=== PATIENT | female | born 1985 | race African-American/Black ===

== ENCOUNTER 2017-09-18 15:15 | Inpatient (IN) ==
[2017-09-18] MEDS ORDERED: ONDANSETRON 4 MG/2 ML VIAL IV PRN (22:38)
[2017-09-18] MEDS ORDERED: AZITHROMYCIN 250 MG TABLET PO SCH (22:38)
[2017-09-18 23:14] LABS: Basophils % 0.2 % (0.0-0.8); Eosinophils % 0.5 % (0.00-10.9); Mean Corpuscular Volume 76.7 FL (87-102); NRBC # 0.11 10*3/uL
[2017-09-18] MEDS ORDERED: INFLUENZA VIRUS VACCINE 0.5 ML SYRINGE IM ONE (23:22)
[2017-09-18 23:38] LABS: Hematocrit 35.8 VOL% (35.7-47.0); Immature Granulocytes % 1.6 %; Immature Granulocytes Absolute 0.14 #; Lymphocytes # 2.9 10*3/uL (1.4-4.0); Lymphocytes % 32.5 % (21.3-54.2); Mean Corpuscular HGB Conc 26.3 GM/DL (32-36); Mean Corpuscular Hemoglobin 20 PG (27-34); Mean Platelet Volume 8.9 FL (9.6-12.0); Monocytes # 0.6 10*3/uL (0.11-0.8); Monocytes % 7.2 % (1.7-12.7); Neutrophils # 5.1 10*3/uL (1.4-7.4); Platelet Count 372 T/CUMM (130-400); Red Blood Count 4.67 MC/CUMM (3.8-5.5); Red Cell Distribution Width 20.2 % (9.3-17.3); White Blood Count 8.8 T/CUMM (4-12)
[2017-09-18 23:39] LABS: Hemoglobin 9.5 GM/DL (12.0-16.0)
[2017-09-18 23:44] LABS: Albumin 2.6 G/DL (3.4-5.0); Bilirubin,Direct 0.21 MG/DL (0.0-0.20); Bilirubin,Indirect 0.3 MG/DL (0.0-1.0); Bilirubin,Total 0.5 MG/DL (0.2-1.0); Free T4 (Free Thyroxine) 1.29 NG/DL (0.76-1.46); Total Protein 7.4 G/DL (6.4-8.3)
[2017-09-18 23:51] LABS: Calcium 8.8 MG/DL (8.5-10.1); Magnesium 1.9 MG/DL (1.8-2.4); Osmolality,Calculated 277.5 MOS/KG (273-304); Potassium 4.1 MMOL/L (3.5-5.1); Risk Ratio 2.43; Thyroid Stimulating Hormone 2.16 uIU/ml (0.358-3.74); VLDL CHOLESTEROL 12.8 MG/DL
[2017-09-19 00:30] LABS: Anisocytosis 1+; Hypochromasia 1+
[2017-09-19 00:31] LABS: Platelet Estimate Normal; Polychromasia Few
[2017-09-19] MEDS: CARVEDILOL 3.125 MG TABLET PO SCH ×3 (00:39→20:57)
[2017-09-19] MEDS: DOCUSATE SODIUM 100 MG CAPSULE PO SCH ×3 (00:39→20:57)
[2017-09-19] MEDS: ENOXAPARIN 40 MG/0.4 ML SYRINGE SUBCUT SCH (04:47)
[2017-09-19] MEDS ORDERED: MIDAZOLAM 10 MG/2 ML VIAL ONE (07:03)
[2017-09-19] MEDS ORDERED: fentaNYL 100 MCG/2 ML VIAL ONE (07:05)
[2017-09-19] MEDS ORDERED: PROPOFOL 1,000 MG/100 ML BOTTLE IV ONE (07:06)
[2017-09-19] MEDS ORDERED: DILTIAZEM 50 MG/10 ML VIAL IV ONE ×2 (07:06→07:45)
[2017-09-19] MEDS ORDERED: DILTIAZEM 100 MG VIAL.ADD IV ONE (07:10)
[2017-09-19] MEDS ORDERED: SODIUM CHLORIDE 0.9% 100 ML IV ONE (07:11)
[2017-09-19] MEDS ORDERED: HEPARIN/NACL 0.9% 2 UNITS/ML 500 ML IV ONE ×2 (07:16→07:19)
[2017-09-19] MEDS ORDERED: MIDAZOLAM 2 MG/2 ML VIAL IV ONE (07:39)
[2017-09-19] MEDS ORDERED: fentaNYL 100 MCG/2 ML VIAL IV ONE (07:40)
[2017-09-19] MEDS ORDERED: DILTIAZEM INJ 100 MG in SODIUM CHLORIDE 0.9% 100 ML IV SCH (08:00)
[2017-09-19] MEDS: PROPOFOL 1,000 MG/100 ML BOTTLE IV SCH ×6 (08:08→21:15)
[2017-09-19 08:20] LABS: ABG HCO3 33.8 MMOL/L (20-26); ABG PH 7.293 (7.35-7.45); ABG TCO2 36.5 MMOL/L (23-27)
[2017-09-19] MEDS: FUROSEMIDE 40 MG/4 ML VIAL IV SCH ×2 (08:20→17:16)
[2017-09-19 08:22] LABS: ABG PCO2 80.8 MM HG (35-48)
[2017-09-19 08:25] LABS: Basophils % 0.3 % (0.0-0.8); Eosinophils % 0.4 % (0.00-10.9); Hematocrit 37.6 VOL% (35.7-47.0); Hemoglobin 9.8 GM/DL (12.0-16.0); Immature Granulocytes % 2.1 %; Immature Granulocytes Absolute 0.24 #; Lymphocytes # 5.4 10*3/uL (1.4-4.0); Mean Corpuscular HGB Conc 26.1 GM/DL (32-36); Mean Corpuscular Hemoglobin 21 PG (27-34); Mean Corpuscular Volume 79.2 FL (87-102); Mean Platelet Volume 10.1 FL (9.6-12.0); Monocytes # 0.7 10*3/uL (0.11-0.8); Monocytes % 5.8 % (1.7-12.7); NRBC # 0.23 10*3/uL; Neutrophils # 5.1 10*3/uL (1.4-7.4); Neutrophils % 44.4 % (38.7-73.9); Platelet Count 379 T/CUMM (130-400); Red Blood Count 4.75 MC/CUMM (3.8-5.5); Red Cell Distribution Width 20.8 % (9.3-17.3); White Blood Count 11.4 T/CUMM (4-12)
[2017-09-19 08:32] LABS: Albumin 2.7 G/DL (3.4-5.0); Bilirubin,Total 0.5 MG/DL (0.2-1.0); Calcium 8.7 MG/DL (8.5-10.1); Osmolality,Calculated 276.7 MOS/KG (273-304); Potassium 4.5 MMOL/L (3.5-5.1); Total Protein 7.8 G/DL (6.4-8.3); Troponin I Only 0.02 NG/ML (0.00-0.045)
[2017-09-19] MEDS ORDERED: LIDOCAINE 2% 20 ML VIAL RESP TX ONE (08:37)
[2017-09-19] MEDS ORDERED: LIDOCAINE 1% 20 ML VIAL MISC INJ ONE (08:37)
[2017-09-19 08:45] LABS: Risk Ratio 2.37; VLDL CHOLESTEROL 14.2 MG/DL
[2017-09-19] MEDS ORDERED: LISINOPRIL 10 MG TABLET PO SCH (09:00)
[2017-09-19 09:22] LABS: Calcium 8.4 MG/DL (8.5-10.1); Magnesium 1.8 MG/DL (1.8-2.4); Osmolality,Calculated 277.5 MOS/KG (273-304); Potassium 4.4 MMOL/L (3.5-5.1)
[2017-09-19 09:28] LABS: Hypochromasia 2+; Microcytosis 1+; Polychromasia Slight
[2017-09-19 10:40] LABS: Allen Test Positive; Pt O2 Delivery Device Ventilator
[2017-09-19 10:41] LABS: ABG Base Excess 15.4 MMOL/L (-2.5-2.5); ABG HCO3 42.8 MMOL/L (20-26); ABG Oxygen Saturation 95.1 % (95-100); ABG PH 7.386 (7.35-7.45)
[2017-09-19] MEDS: PANTOPRAZOLE 40 MG TABLET PO SCH (11:30)
[2017-09-19] MEDS: PIPERACILLIN/TAZOBACTAM 3,375 MG in SODIUM CHLORIDE 0.9% 100 ML IV SCH ×2 (11:30→17:16)
[2017-09-19 11:53] LABS: Barbiturates Screen,Urine Negative (Negative); Benzodiazepines Screen,Urine Positive (Negative); Cannabinoid Screen,Urine Negative (Negative); Opiate Screen,Urine Negative (Negative); Phencyclidine Screen,Urine Negative (Negative)
[2017-09-19] MEDS: DILTIAZEM 30 MG TABLET PO SCH ×3 (12:15→20:57)
[2017-09-20] MEDS: PIPERACILLIN/TAZOBACTAM 3,375 MG in SODIUM CHLORIDE 0.9% 100 ML IV SCH ×3 (01:51→18:44)
[2017-09-20] MEDS: PROPOFOL 1,000 MG/100 ML BOTTLE IV SCH ×10 (02:34→23:30)
[2017-09-20 02:36] LABS: ABG Base Excess 17.8 MMOL/L (-2.5-2.5); ABG HCO3 42.3 MMOL/L (20-26); ABG Oxygen Saturation 98.7 % (95-100); ABG PH 7.545 (7.35-7.45); ABG PO2 120.9 MM HG (80-95); ABG TCO2 43.8 MMOL/L (23-27); Pt O2 Delivery Device Ventilator
[2017-09-20 03:37] LABS: Calcium 8.6 MG/DL (8.5-10.1); Magnesium 1.8 MG/DL (1.8-2.4); Osmolality,Calculated 279.3 MOS/KG (273-304); Potassium 3.6 MMOL/L (3.5-5.1)
[2017-09-20 03:52] LABS: Basophils % 0.2 % (0.0-0.8); Eosinophils # 0.1 10*3/uL (0.0-0.87); Eosinophils % 0.8 % (0.00-10.9); Hematocrit 32.5 VOL% (35.7-47.0); Hemoglobin 8.9 GM/DL (12.0-16.0); Immature Granulocytes % 0.5 %; Immature Granulocytes Absolute 0.05 #; Lymphocytes # 1.9 10*3/uL (1.4-4.0); Mean Corpuscular HGB Conc 27.4 GM/DL (32-36); Mean Corpuscular Hemoglobin 20 PG (27-34); Mean Corpuscular Volume 73.4 FL (87-102); Mean Platelet Volume 9.4 FL (9.6-12.0); Monocytes # 0.7 10*3/uL (0.11-0.8); Monocytes % 6.6 % (1.7-12.7); NRBC # 0.02 10*3/uL; Neutrophils # 7.8 10*3/uL (1.4-7.4); Neutrophils % 73.9 % (38.7-73.9); Platelet Count 298 T/CUMM (130-400); Red Blood Count 4.43 MC/CUMM (3.8-5.5); White Blood Count 10.6 T/CUMM (4-12)
[2017-09-20 04:05] LABS: Anisocytosis 2+; Hypochromasia 3+; Platelet Estimate Normal; Polychromasia Slight
[2017-09-20] MEDS: ENOXAPARIN 40 MG/0.4 ML SYRINGE SUBCUT SCH (05:25)
[2017-09-20] MEDS ORDERED: AMINOPHYLLINE 250 MG in SODIUM CHLORIDE 0.9% 100 ML IV ONE (07:00)
[2017-09-20] MEDS: DILTIAZEM 30 MG TABLET PO SCH ×4 (11:25→21:51)
[2017-09-20] MEDS: DOCUSATE SODIUM 100 MG CAPSULE PO SCH ×2 (11:25→21:51)
[2017-09-20] MEDS: CARVEDILOL 3.125 MG TABLET PO SCH ×2 (11:25→21:51)
[2017-09-20] MEDS: FUROSEMIDE 40 MG/4 ML VIAL IV SCH ×2 (11:26→16:04)
[2017-09-20] MEDS: PANTOPRAZOLE 40 MG VIAL IV SCH (11:26)
[2017-09-20] MEDS ORDERED: ENOXAPARIN 100 MG/ML SYRINGE SUBCUT ONE (11:37)
[2017-09-20] MEDS: PANTOPRAZOLE 40 MG TABLET PO SCH (11:42)
[2017-09-20] MEDS: AMINOPHYLLINE 1,000 MG in SODIUM CHLORIDE 0.9% 460 ML IV SCH (11:45)
[2017-09-20] MEDS: ASPIRIN CHEW 81 MG TABLET PO SCH (11:47)
[2017-09-20] MEDS ORDERED: GLUCAGON 1 MG VIAL IM PRN (12:22)
[2017-09-20] MEDS ORDERED: DEXTROSE 50% 25 GM/50 ML VIAL IV PRN (12:22)
[2017-09-20] MEDS: INSULIN REGULAR 100 UNIT/ML SUBCUT SCH (18:44)
[2017-09-20] MEDS ORDERED: ENOXAPARIN 150 MG/ML SYRINGE SUBCUT SCH (21:00)
[2017-09-21] MEDS ORDERED: SODIUM CHLORIDE 0.9% 500 ML IV ONE (00:40)
[2017-09-21] MEDS: INSULIN REGULAR 100 UNIT/ML SUBCUT SCH ×4 (00:51→18:07)
[2017-09-21] MEDS: PROPOFOL 1,000 MG/100 ML BOTTLE IV SCH ×4 (02:00→21:00)
[2017-09-21] MEDS: PIPERACILLIN/TAZOBACTAM 3,375 MG in SODIUM CHLORIDE 0.9% 100 ML IV SCH ×3 (03:17→18:07)
[2017-09-21 03:20] LABS: ABG Base Excess 12.4 MMOL/L (-2.5-2.5); ABG HCO3 39.8 MMOL/L (20-26); ABG Oxygen Saturation 94.5 % (95-100); ABG PH 7.371 (7.35-7.45); ABG PO2 77.2 MM HG (80-95); ABG TCO2 41.9 MMOL/L (23-27); Allen Test Positive; Pt O2 Delivery Device Ventilator
[2017-09-21 03:25] LABS: ABG PCO2 70.2 MM HG (35-48)
[2017-09-21] MEDS: AMINOPHYLLINE 1,000 MG in SODIUM CHLORIDE 0.9% 460 ML IV SCH ×3 (04:14→21:29)
[2017-09-21 04:17] LABS: Calcium 8.3 MG/DL (8.5-10.1); Magnesium 2.1 MG/DL (1.8-2.4); Osmolality,Calculated 285.1 MOS/KG (273-304); Potassium 3.4 MMOL/L (3.5-5.1)
[2017-09-21 05:10] LABS: Phosphorous 5.7 MG/DL (2.5-4.9); Prealbumin 8.4 MG/DL (20-40)
[2017-09-21 05:25] LABS: Red Blood Count 4.46 MC/CUMM (3.8-5.5); White Blood Count 9.4 T/CUMM (4-12)
[2017-09-21 05:26] LABS: Basophils % 0.2 % (0.0-0.8); Eosinophils # 0.3 10*3/uL (0.0-0.87); Eosinophils % 2.9 % (0.00-10.9); Immature Granulocytes % 0.4 %; Immature Granulocytes Absolute 0.04 #; Lymphocytes # 1.8 10*3/uL (1.4-4.0); Lymphocytes % 19.2 % (21.3-54.2); Mean Corpuscular HGB Conc 26.5 GM/DL (32-36); Mean Corpuscular Hemoglobin 20 PG (27-34); Mean Corpuscular Volume 76.2 FL (87-102); Mean Platelet Volume 9.7 FL (9.6-12.0); Monocytes # 0.8 10*3/uL (0.11-0.8); Monocytes % 8.9 % (1.7-12.7); Neutrophils # 6.4 10*3/uL (1.4-7.4); Neutrophils % 68.4 % (38.7-73.9); Platelet Count 326 T/CUMM (130-400); Red Cell Distribution Width 21.5 % (9.3-17.3)
[2017-09-21 06:04] LABS: Hypochromasia 2+; Microcytosis 1+; Target Cells Few
[2017-09-21 06:05] LABS: Anisocytosis 1+; Ovalocytes Slight; Platelet Estimate Normal; Tear Drop Cells Slight
[2017-09-21] MEDS: DEXMEDETOMIDINE 200 MCG in SODIUM CHLORIDE 0.9% 48 ML IV SCH ×2 (08:23→14:21)
[2017-09-21] MEDS: FUROSEMIDE 40 MG/4 ML VIAL IV SCH ×2 (08:23→17:06)
[2017-09-21] MEDS: ENOXAPARIN 40 MG/0.4 ML SYRINGE SUBCUT SCH (09:44)
[2017-09-21] MEDS: PANTOPRAZOLE 40 MG VIAL IV SCH (09:45)
[2017-09-21] MEDS: CARVEDILOL 3.125 MG TABLET PO SCH (09:45)
[2017-09-21] MEDS: ASPIRIN CHEW 81 MG TABLET PO SCH (09:45)
[2017-09-21] MEDS: DILTIAZEM 30 MG TABLET PO SCH ×4 (09:45→21:00)
[2017-09-21] MEDS: DOCUSATE SODIUM 100 MG CAPSULE PO SCH ×2 (09:46→21:29)
[2017-09-21] MEDS: DESITIN 4OZ/NYSTATIN 15 GRAM MIXTURE PASTE TOP SCH (12:15)
[2017-09-22] MEDS: INSULIN REGULAR 100 UNIT/ML SUBCUT SCH ×4 (00:01→18:15)
[2017-09-22] MEDS: CARVEDILOL 3.125 MG TABLET PO SCH ×2 (01:18→10:05)
[2017-09-22] MEDS: PROPOFOL 1,000 MG/100 ML BOTTLE IV SCH (01:26)
[2017-09-22] MEDS: PIPERACILLIN/TAZOBACTAM 3,375 MG in SODIUM CHLORIDE 0.9% 100 ML IV SCH ×3 (02:32→17:03)
[2017-09-22] MEDS: DESITIN 4OZ/NYSTATIN 15 GRAM MIXTURE PASTE TOP SCH ×2 (03:00→10:49)
[2017-09-22 03:42] LABS: ABG Base Excess 9.6 MMOL/L (-2.5-2.5); ABG HCO3 35.5 MMOL/L (20-26); ABG Oxygen Saturation 98.5 % (95-100); ABG PCO2 55.7 MM HG (35-48); ABG PH 7.422 (7.35-7.45); ABG PO2 117.4 MM HG (80-95); ABG TCO2 37.2 MMOL/L (23-27); Pt O2 Delivery Device Ventilator
[2017-09-22 03:44] LABS: Calcium 8.3 MG/DL (8.5-10.1); Osmolality,Calculated 285.1 MOS/KG (273-304); Potassium 3.4 MMOL/L (3.5-5.1)
[2017-09-22 04:00] LABS: Basophils % 0.1 % (0.0-0.8); Eosinophils # 0.3 10*3/uL (0.0-0.87); Eosinophils % 3.3 % (0.00-10.9); Hematocrit 35.3 VOL% (35.7-47.0); Hemoglobin 9.2 GM/DL (12.0-16.0); Immature Granulocytes % 0.4 %; Immature Granulocytes Absolute 0.04 #; Lymphocytes # 2.3 10*3/uL (1.4-4.0); Lymphocytes % 23.5 % (21.3-54.2); Mean Corpuscular HGB Conc 26.1 GM/DL (32-36); Mean Corpuscular Hemoglobin 20 PG (27-34); Mean Corpuscular Volume 77.6 FL (87-102); Mean Platelet Volume 9.5 FL (9.6-12.0); Monocytes # 0.9 10*3/uL (0.11-0.8); Monocytes % 9.2 % (1.7-12.7); NRBC # 0.02 10*3/uL; Neutrophils # 6.2 10*3/uL (1.4-7.4); Neutrophils % 63.5 % (38.7-73.9); Platelet Count 303 T/CUMM (130-400); Red Blood Count 4.55 MC/CUMM (3.8-5.5); Red Cell Distribution Width 21.6 % (9.3-17.3); White Blood Count 9.8 T/CUMM (4-12)
[2017-09-22 06:31] LABS: Giant Platelets Few; Hypochromasia 1+; Microcytosis 1+; Platelet Estimate Adequate
[2017-09-22] MEDS: FUROSEMIDE 40 MG/4 ML VIAL IV SCH ×2 (09:55→17:03)
[2017-09-22] MEDS: PANTOPRAZOLE 40 MG VIAL IV SCH (10:03)
[2017-09-22] MEDS: DOCUSATE SODIUM 100 MG CAPSULE PO SCH ×2 (10:05→22:15)
[2017-09-22] MEDS: DILTIAZEM 30 MG TABLET PO SCH ×3 (10:05→17:03)
[2017-09-22] MEDS: ASPIRIN CHEW 81 MG TABLET PO SCH (10:05)
[2017-09-22] MEDS: ENOXAPARIN 40 MG/0.4 ML SYRINGE SUBCUT SCH (10:06)
[2017-09-22] MEDS: MULTIVITAMIN LIQUID (CENTRUM) 60 ML BOTTLE PER TUBE SCH (10:06)
[2017-09-22] MEDS: AMINOPHYLLINE 1,000 MG in SODIUM CHLORIDE 0.9% 460 ML IV SCH (14:44)
[2017-09-23] MEDS: PIPERACILLIN/TAZOBACTAM 3,375 MG in SODIUM CHLORIDE 0.9% 100 ML IV SCH ×3 (01:59→19:26)
[2017-09-23] MEDS: DESITIN 4OZ/NYSTATIN 15 GRAM MIXTURE PASTE TOP SCH ×3 (01:59→21:13)
[2017-09-23 03:48] LABS: Allen Test Positive; Pt O2 Delivery Device Ventilator
[2017-09-23 03:49] LABS: ABG Base Excess 5.1 MMOL/L (-2.5-2.5); ABG HCO3 32.2 MMOL/L (20-26); ABG Oxygen Saturation 95.3 % (95-100); ABG PCO2 61.5 MM HG (35-48); ABG PH 7.337 (7.35-7.45); ABG PO2 74.7 MM HG (80-95); ABG TCO2 34.1 MMOL/L (23-27)
[2017-09-23 04:37] LABS: Basophils % 0.2 % (0.0-0.8); Eosinophils # 0.3 10*3/uL (0.0-0.87); Eosinophils % 2.9 % (0.00-10.9); Hemoglobin 9.4 GM/DL (12.0-16.0); Immature Granulocytes % 0.9 %; Lymphocytes # 1.9 10*3/uL (1.4-4.0); Lymphocytes % 16.7 % (21.3-54.2); Mean Corpuscular HGB Conc 25.9 GM/DL (32-36); Mean Corpuscular Hemoglobin 20 PG (27-34); Mean Corpuscular Volume 78.2 FL (87-102); Mean Platelet Volume 9.4 FL (9.6-12.0); Monocytes % 9.1 % (1.7-12.7); Neutrophils # 7.9 10*3/uL (1.4-7.4); Neutrophils % 70.2 % (38.7-73.9); Platelet Count 307 T/CUMM (130-400); Red Blood Count 4.64 MC/CUMM (3.8-5.5); Red Cell Distribution Width 21.3 % (9.3-17.3); White Blood Count 11.3 T/CUMM (4-12)
[2017-09-23 04:48] LABS: Calcium 8.5 MG/DL (8.5-10.1); Osmolality,Calculated 278.7 MOS/KG (273-304); Potassium 3.8 MMOL/L (3.5-5.1)
[2017-09-23] MEDS: DILTIAZEM 30 MG TABLET PO SCH ×5 (04:53→21:13)
[2017-09-23] MEDS: CARVEDILOL 3.125 MG TABLET PO SCH ×2 (04:53→08:36)
[2017-09-23] MEDS: PROPOFOL 1,000 MG/100 ML BOTTLE IV SCH ×2 (04:54→19:25)
[2017-09-23] MEDS: INSULIN REGULAR 100 UNIT/ML SUBCUT SCH ×4 (04:54→19:24)
[2017-09-23 04:57] LABS: Ferritin 47.4 ng/ml (8-252)
[2017-09-23 05:19] LABS: Hematocrit 36.3 VOL% (35.7-47.0)
[2017-09-23 05:24] LABS: Platelet Estimate Normal
[2017-09-23 05:25] LABS: Anisocytosis 2+; Hypochromasia 2+; Macrocytosis 1+; Microcytosis 1+; Target Cells 2+
[2017-09-23] MEDS: DOCUSATE SODIUM 100 MG CAPSULE PO SCH ×2 (08:36→21:13)
[2017-09-23] MEDS: ASPIRIN CHEW 81 MG TABLET PO SCH (08:36)
[2017-09-23] MEDS: ENOXAPARIN 40 MG/0.4 ML SYRINGE SUBCUT SCH (08:37)
[2017-09-23] MEDS: AMINOPHYLLINE 1,000 MG in SODIUM CHLORIDE 0.9% 460 ML IV SCH (08:37)
[2017-09-23] MEDS: PANTOPRAZOLE 40 MG VIAL IV SCH (08:40)
[2017-09-23] MEDS: FUROSEMIDE 40 MG/4 ML VIAL IV SCH (08:41)
[2017-09-23] MEDS: MULTIVITAMIN LIQUID (CENTRUM) 60 ML BOTTLE PER TUBE SCH (08:45)
[2017-09-23] MEDS ORDERED: CARVEDILOL 3.125 MG TABLET PO ONE (09:38)
[2017-09-23] MEDS: CARVEDILOL 6.25 MG TABLET PO SCH ×2 (09:39→21:13)
[2017-09-24] MEDS: AMINOPHYLLINE 1,000 MG in SODIUM CHLORIDE 0.9% 460 ML IV SCH ×2 (00:05→16:21)
[2017-09-24] MEDS: INSULIN REGULAR 100 UNIT/ML SUBCUT SCH ×4 (01:13→19:07)
[2017-09-24] MEDS: PIPERACILLIN/TAZOBACTAM 3,375 MG in SODIUM CHLORIDE 0.9% 100 ML IV SCH ×3 (02:24→19:12)
[2017-09-24 03:47] LABS: Allen Test Positive
[2017-09-24 03:49] LABS: ABG Base Excess 2.9 MMOL/L (-2.5-2.5); ABG HCO3 26.9 MMOL/L (20-26); ABG Oxygen Saturation 91.8 % (95-100); ABG PH 7.227 (7.35-7.45); ABG PO2 67.6 MM HG (80-95); ABG TCO2 30.6 MMOL/L (23-27)
[2017-09-24 03:51] LABS: ABG PCO2 78.6 MM HG (35-48)
[2017-09-24 04:21] LABS: Basophils % 0.3 % (0.0-0.8); Eosinophils # 0.1 10*3/uL (0.0-0.87); Eosinophils % 0.5 % (0.00-10.9); Hematocrit 37.7 VOL% (35.7-47.0); Hemoglobin 9.6 GM/DL (12.0-16.0); Immature Granulocytes % 4.8 %; Immature Granulocytes Absolute 0.74 #; Lymphocytes # 2.2 10*3/uL (1.4-4.0); Mean Corpuscular HGB Conc 25.5 GM/DL (32-36); Mean Corpuscular Hemoglobin 20 PG (27-34); Mean Corpuscular Volume 79.5 FL (87-102); Mean Platelet Volume 9.4 FL (9.6-12.0); Monocytes # 1.2 10*3/uL (0.11-0.8); Monocytes % 7.5 % (1.7-12.7); NRBC # 0.05 10*3/uL; Neutrophils # 11.4 10*3/uL (1.4-7.4); Neutrophils % 72.9 % (38.7-73.9); Platelet Count 305 T/CUMM (130-400); Red Blood Count 4.74 MC/CUMM (3.8-5.5); Red Cell Distribution Width 20.3 % (9.3-17.3); White Blood Count 15.6 T/CUMM (4-12)
[2017-09-24 04:25] LABS: Calcium 9.1 MG/DL (8.5-10.1); Osmolality,Calculated 270.1 MOS/KG (273-304); Potassium 4.4 MMOL/L (3.5-5.1)
[2017-09-24 04:33] LABS: Band Neutrophils 2 % (0-10); Eosinophils 3 % (0-10); Lymphocytes 14 % (20-55); Metamyelocytes 1 %; Myelocytes 1 %; Segmented Neutrophils 75 % (50-85)
[2017-09-24 04:34] LABS: Hypochromasia 2+; Platelet Estimate Normal; Polychromasia Few
[2017-09-24 04:35] LABS: Stomatocytes Few; Target Cells Few
[2017-09-24 04:37] LABS: Total Cells Counted 100
[2017-09-24 04:38] LABS: Ovalocytes 1+
[2017-09-24 04:46] LABS: Magnesium 2.1 MG/DL (1.8-2.4); Phosphorous 3.3 MG/DL (2.5-4.9); Prealbumin 9.5 MG/DL (20-40)
[2017-09-24] MEDS: DOCUSATE SODIUM 100 MG CAPSULE PO SCH ×2 (08:07→22:05)
[2017-09-24] MEDS: ENOXAPARIN 40 MG/0.4 ML SYRINGE SUBCUT SCH (08:07)
[2017-09-24] MEDS: DILTIAZEM 30 MG TABLET PO SCH (08:07)
[2017-09-24] MEDS: ASPIRIN CHEW 81 MG TABLET PO SCH (08:08)
[2017-09-24] MEDS: MULTIVITAMIN LIQUID (CENTRUM) 60 ML BOTTLE PER TUBE SCH (08:08)
[2017-09-24] MEDS: DESITIN 4OZ/NYSTATIN 15 GRAM MIXTURE PASTE TOP SCH ×2 (08:08→22:01)
[2017-09-24] MEDS: CARVEDILOL 6.25 MG TABLET PO SCH (08:08)
[2017-09-24] MEDS: PANTOPRAZOLE 40 MG VIAL IV SCH (08:12)
[2017-09-24] MEDS: VANCOMYCIN INJ 2,000 MG in SODIUM CHLORIDE 0.9% 500 ML IV SCH ×2 (10:54→19:11)
[2017-09-24] MEDS ORDERED: DILTIAZEM 90 MG TABLET PO ONE (12:30)
[2017-09-24] MEDS ORDERED: SODIUM CHLORIDE 0.45% 1,000 ML IV SCH (12:30)
[2017-09-24 18:35] LABS: ABG Base Excess 4.2 MMOL/L (-2.5-2.5); ABG HCO3 27.9 MMOL/L (20-26); ABG Oxygen Saturation 82.4 % (95-100); ABG PO2 53.3 MM HG (80-95); ABG TCO2 33.5 MMOL/L (23-27); Allen Test Positive; Pt O2 Delivery Device BIPAP
[2017-09-24 18:37] LABS: ABG PCO2 94.4 MM HG (35-48); ABG PH 7.185 (7.35-7.45)
[2017-09-24 19:31] LABS: ABG Base Excess 6.3 MMOL/L (-2.5-2.5); ABG HCO3 29.6 MMOL/L (20-26); ABG Oxygen Saturation 64.8 % (95-100); ABG PH 7.248 (7.35-7.45); Allen Test Positive; Pt O2 Delivery Device BIPAP
[2017-09-24 19:32] LABS: ABG PO2 36.5 MM HG (80-95)
[2017-09-24] MEDS ORDERED: ETOMIDATE 20 MG/10 ML VIAL IV ONE (20:02)
[2017-09-24] MEDS ORDERED: SUCCINYLCHOLINE 200 MG/10 ML VIAL ONE (20:02)
[2017-09-24] MEDS ORDERED: PROPOFOL 1,000 MG/100 ML BOTTLE IV ONE (20:02)
[2017-09-24] MEDS: PROPOFOL 1,000 MG/100 ML BOTTLE IV SCH ×2 (20:30→22:37)
[2017-09-24] MEDS: DILTIAZEM CD 120 MG CAPSULE PO SCH (21:51)
[2017-09-24] MEDS: CARVEDILOL 3.125 MG TABLET PO SCH (22:00)
[2017-09-24 22:09] LABS: ABG PH 7.226 (7.35-7.45); ABG TCO2 31.8 MMOL/L (23-27)
[2017-09-25] MEDS: PROPOFOL 1,000 MG/100 ML BOTTLE IV SCH ×9 (02:21→23:56)
[2017-09-25] MEDS: VANCOMYCIN INJ 2,000 MG in SODIUM CHLORIDE 0.9% 500 ML IV SCH ×2 (02:26→10:29)
[2017-09-25] MEDS: PIPERACILLIN/TAZOBACTAM 3,375 MG in SODIUM CHLORIDE 0.9% 100 ML IV SCH ×3 (02:26→19:18)
[2017-09-25 03:52] LABS: ABG Base Excess 7.6 MMOL/L (-2.5-2.5); ABG HCO3 31.5 MMOL/L (20-26); ABG PCO2 43.4 MM HG (35-48); ABG PH 7.476 (7.35-7.45); ABG TCO2 29.5 MMOL/L (23-27); Allen Test Positive; Pt O2 Delivery Device Ventilator
[2017-09-25 04:13] LABS: Calcium 8.5 MG/DL (8.5-10.1); Osmolality,Calculated 277.7 MOS/KG (273-304); Potassium 3.9 MMOL/L (3.5-5.1)
[2017-09-25 06:11] LABS: ABG PCO2 83.2 MM HG (35-48)
[2017-09-25] MEDS ORDERED: PROPOFOL 1,000 MG/100 ML BOTTLE IV SCH (07:00)
[2017-09-25] MEDS: PANTOPRAZOLE 40 MG VIAL IV SCH (11:08)
[2017-09-25] MEDS: DOCUSATE SODIUM 100 MG/10 ML UDCUP NG SCH ×2 (11:08→20:53)
[2017-09-25] MEDS: FUROSEMIDE 40 MG/4 ML VIAL IV SCH (11:08)
[2017-09-25] MEDS: DILTIAZEM 30 MG TABLET PO SCH ×5 (11:09→20:53)
[2017-09-25] MEDS: CARVEDILOL 3.125 MG TABLET PO SCH ×2 (11:09→20:53)
[2017-09-25] MEDS: ENOXAPARIN 40 MG/0.4 ML SYRINGE SUBCUT SCH (11:10)
[2017-09-25] MEDS: MULTIVITAMIN LIQUID (CENTRUM) 60 ML BOTTLE PER TUBE SCH (11:10)
[2017-09-25] MEDS: AMINOPHYLLINE 1,000 MG in SODIUM CHLORIDE 0.9% 460 ML IV SCH (11:11)
[2017-09-25] MEDS: ASPIRIN CHEW 81 MG TABLET PO SCH (11:11)
[2017-09-25] MEDS: DESITIN 4OZ/NYSTATIN 15 GRAM MIXTURE PASTE TOP SCH ×2 (11:11→20:54)
[2017-09-25] MEDS: DILTIAZEM CD 120 MG CAPSULE PO SCH (11:51)
[2017-09-26] MEDS: PIPERACILLIN/TAZOBACTAM 3,375 MG in SODIUM CHLORIDE 0.9% 100 ML IV SCH ×3 (03:30→18:38)
[2017-09-26 03:58] LABS: Allen Test Positive; Pt O2 Delivery Device Ventilator
[2017-09-26] MEDS: PROPOFOL 1,000 MG/100 ML BOTTLE IV SCH ×6 (04:00→20:37)
[2017-09-26 04:25] LABS: ABG PH 7.444 (7.35-7.45); ABG PO2 74.4 MM HG (80-95)
[2017-09-26 04:26] LABS: ABG Base Excess 5.2 MMOL/L (-2.5-2.5); ABG HCO3 30.2 MMOL/L (20-26); ABG Oxygen Saturation 95.4 % (95-100); ABG TCO2 31.5 MMOL/L (23-27)
[2017-09-26 08:01] LABS: Basophils % 0.4 % (0.0-0.8); Eosinophils # 0.5 10*3/uL (0.0-0.87); Eosinophils % 4.5 % (0.00-10.9); Hematocrit 33.9 VOL% (35.7-47.0); Hemoglobin 9.1 GM/DL (12.0-16.0); Immature Granulocytes % 3.4 %; Immature Granulocytes Absolute 0.39 #; Lymphocytes # 1.5 10*3/uL (1.4-4.0); Mean Corpuscular HGB Conc 26.8 GM/DL (32-36); Mean Corpuscular Hemoglobin 21 PG (27-34); Mean Corpuscular Volume 76.7 FL (87-102); Mean Platelet Volume 10.1 FL (9.6-12.0); Monocytes # 0.9 10*3/uL (0.11-0.8); Monocytes % 8.2 % (1.7-12.7); NRBC # 0.03 10*3/uL; Neutrophils # 8.1 10*3/uL (1.4-7.4); Neutrophils % 70.5 % (38.7-73.9); Platelet Count 316 T/CUMM (130-400); Red Blood Count 4.42 MC/CUMM (3.8-5.5); Red Cell Distribution Width 20.9 % (9.3-17.3); White Blood Count 11.4 T/CUMM (4-12)
[2017-09-26 08:18] LABS: Calcium 8.6 MG/DL (8.5-10.1); Magnesium 2.2 MG/DL (1.8-2.4); Osmolality,Calculated 286.3 MOS/KG (273-304)
[2017-09-26 09:10] LABS: Elliptocytes Few; Giant Platelets Few; Hypochromasia 1+; Macrocytosis Slight; Platelet Estimate Adequate; Polychromasia Slight
[2017-09-26] MEDS: DILTIAZEM 30 MG TABLET PO SCH ×3 (09:42→17:19)
[2017-09-26] MEDS: ASPIRIN CHEW 81 MG TABLET PO SCH (09:43)
[2017-09-26] MEDS: CARVEDILOL 3.125 MG TABLET PO SCH ×2 (09:43→20:20)
[2017-09-26] MEDS: DOCUSATE SODIUM 100 MG/10 ML UDCUP NG SCH ×2 (09:43→20:20)
[2017-09-26] MEDS: ENOXAPARIN 40 MG/0.4 ML SYRINGE SUBCUT SCH (09:44)
[2017-09-26] MEDS: PANTOPRAZOLE 40 MG VIAL IV SCH (09:44)
[2017-09-26] MEDS: FUROSEMIDE 40 MG/4 ML VIAL IV SCH (09:44)
[2017-09-26] MEDS: DESITIN 4OZ/NYSTATIN 15 GRAM MIXTURE PASTE TOP SCH ×2 (09:45→20:34)
[2017-09-26] MEDS: MULTIVITAMIN LIQUID (CENTRUM) 60 ML BOTTLE PER TUBE SCH (09:45)
[2017-09-26] MEDS: POTASSIUM CHLORIDE 20 MEQ/15 ML UDCUP PER TUBE PRN ×3 (09:46→15:16)
[2017-09-26] MEDS ORDERED: VANCOMYCIN INJ 2,000 MG in SODIUM CHLORIDE 0.9% 500 ML IV SCH (12:00)
[2017-09-26] MEDS: AMINOPHYLLINE 1,000 MG in SODIUM CHLORIDE 0.9% 460 ML IV SCH (12:26)
[2017-09-26] MEDS: INSULIN REGULAR 100 UNIT/ML SUBCUT SCH ×2 (12:58→17:34)
[2017-09-26] MEDS ORDERED: VANCOMYCIN INJ 2,000 MG in SODIUM CHLORIDE 0.9% 500 ML IV PRN (12:59)
[2017-09-26] MEDS ORDERED: PHENOL 1.4% THROAT SPRAY 177 ML BOTTLE PO PRN (19:33)
[2017-09-26] MEDS: ZALEPLON 5 MG CAPSULE PO PRN (20:20)
[2017-09-26] MEDS: MIDAZOLAM 2 MG/2 ML VIAL IV PRN (20:30)
[2017-09-26] MEDS: NOREPINEPHRINE 8 MG in SODIUM CHLORIDE 0.9% 242 ML IV SCH (22:02)
[2017-09-26] MEDS: SODIUM CHLOR 0.45% KCL 20 MEQ 20 MEQ/1,000 ML BAG IV SCH (22:03)
[2017-09-27] MEDS: INSULIN REGULAR 100 UNIT/ML SUBCUT SCH ×4 (00:30→17:43)
[2017-09-27] MEDS: MIDAZOLAM 2 MG/2 ML VIAL IV PRN ×5 (00:30→19:57)
[2017-09-27] MEDS: DILTIAZEM 30 MG TABLET PO SCH ×4 (00:51→20:00)
[2017-09-27] MEDS: PIPERACILLIN/TAZOBACTAM 3,375 MG in SODIUM CHLORIDE 0.9% 100 ML IV SCH ×3 (01:46→17:10)
[2017-09-27 03:29] LABS: ABG Base Excess 5.7 MMOL/L (-2.5-2.5); ABG HCO3 29.6 MMOL/L (20-26); ABG Oxygen Saturation 99.7 % (95-100); ABG PCO2 44.8 MM HG (35-48); ABG PH 7.441 (7.35-7.45); Pt O2 Delivery Device Ventilator
[2017-09-27 04:47] LABS: Calcium 8.4 MG/DL (8.5-10.1); Osmolality,Calculated 302.6 MOS/KG (273-304); Potassium 3.2 MMOL/L (3.5-5.1)
[2017-09-27 05:41] LABS: Magnesium 2.3 MG/DL (1.8-2.4); Phosphorous 3.3 MG/DL (2.5-4.9); Prealbumin 10.9 MG/DL (20-40)
[2017-09-27] MEDS: POTASSIUM CHLORIDE 20 MEQ/15 ML UDCUP PER TUBE PRN ×4 (09:29→15:02)
[2017-09-27] MEDS: PANTOPRAZOLE 40 MG VIAL IV SCH (09:29)
[2017-09-27] MEDS: ENOXAPARIN 40 MG/0.4 ML SYRINGE SUBCUT SCH (09:29)
[2017-09-27] MEDS: DOCUSATE SODIUM 100 MG/10 ML UDCUP NG SCH ×2 (09:30→20:00)
[2017-09-27] MEDS: ASPIRIN CHEW 81 MG TABLET PO SCH (09:30)
[2017-09-27] MEDS: CARVEDILOL 3.125 MG TABLET PO SCH ×2 (09:30→20:00)
[2017-09-27] MEDS: DESITIN 4OZ/NYSTATIN 15 GRAM MIXTURE PASTE TOP SCH ×2 (09:30→21:20)
[2017-09-27] MEDS: MULTIVITAMIN LIQUID (CENTRUM) 60 ML BOTTLE PER TUBE SCH (09:30)
[2017-09-27] MEDS: SODIUM CHLOR 0.45% KCL 20 MEQ 20 MEQ/1,000 ML BAG IV SCH ×2 (09:32→21:31)
[2017-09-27] MEDS: AMINOPHYLLINE 1,000 MG in SODIUM CHLORIDE 0.9% 460 ML IV SCH (09:32)
[2017-09-27] MEDS: ZALEPLON 5 MG CAPSULE PO PRN (20:00)
[2017-09-27] MEDS: NOREPINEPHRINE 8 MG in SODIUM CHLORIDE 0.9% 242 ML IV SCH (21:21)
[2017-09-27] MEDS: PROPOFOL 1,000 MG/100 ML BOTTLE IV SCH ×2 (21:21→23:20)
[2017-09-28] MEDS: INSULIN REGULAR 100 UNIT/ML SUBCUT SCH ×4 (01:03→18:11)
[2017-09-28] MEDS: SODIUM CHLOR 0.45% KCL 20 MEQ 20 MEQ/1,000 ML BAG IV SCH (01:04)
[2017-09-28] MEDS: PROPOFOL 1,000 MG/100 ML BOTTLE IV SCH ×4 (01:44→23:58)
[2017-09-28] MEDS: PIPERACILLIN/TAZOBACTAM 3,375 MG in SODIUM CHLORIDE 0.9% 100 ML IV SCH ×3 (02:29→18:46)
[2017-09-28 03:03] LABS: ABG Base Excess 4.4 MMOL/L (-2.5-2.5); ABG HCO3 28.4 MMOL/L (20-26); ABG PCO2 47.7 MM HG (35-48); ABG PH 7.404 (7.35-7.45); ABG TCO2 27.6 MMOL/L (23-27); Allen Test Positive; Pt O2 Delivery Device Ventilator
[2017-09-28 06:07] LABS: Calcium 8.5 MG/DL (8.5-10.1); Osmolality,Calculated 299.6 MOS/KG (273-304)
[2017-09-28] MEDS: PANTOPRAZOLE 40 MG VIAL IV SCH (09:35)
[2017-09-28] MEDS: ASPIRIN CHEW 81 MG TABLET PO SCH (09:39)
[2017-09-28] MEDS: DOCUSATE SODIUM 100 MG/10 ML UDCUP NG SCH ×2 (09:40→20:50)
[2017-09-28] MEDS: CARVEDILOL 3.125 MG TABLET PO SCH ×2 (09:40→20:50)
[2017-09-28] MEDS: DILTIAZEM 30 MG TABLET PO SCH ×3 (09:41→20:51)
[2017-09-28] MEDS: ENOXAPARIN 40 MG/0.4 ML SYRINGE SUBCUT SCH (09:42)
[2017-09-28] MEDS: MULTIVITAMIN LIQUID (CENTRUM) 60 ML BOTTLE PER TUBE SCH (09:44)
[2017-09-28] MEDS: DESITIN 4OZ/NYSTATIN 15 GRAM MIXTURE PASTE TOP SCH ×2 (09:45→21:27)
[2017-09-28] MEDS: AMINOPHYLLINE 1,000 MG in SODIUM CHLORIDE 0.9% 460 ML IV SCH (11:40)
[2017-09-28] MEDS ORDERED: ACETAMINOPHEN 325 MG TABLET PO PRN (14:55)
[2017-09-28] MEDS: NOREPINEPHRINE 8 MG in SODIUM CHLORIDE 0.9% 242 ML IV SCH (21:27)
[2017-09-29] MEDS: INSULIN REGULAR 100 UNIT/ML SUBCUT SCH ×5 (00:02→23:57)
[2017-09-29] MEDS: PIPERACILLIN/TAZOBACTAM 3,375 MG in SODIUM CHLORIDE 0.9% 100 ML IV SCH ×3 (01:22→18:41)
[2017-09-29] MEDS: PROPOFOL 1,000 MG/100 ML BOTTLE IV SCH ×3 (04:29→22:45)
[2017-09-29 05:09] LABS: Basophils % 0.4 % (0.0-0.8); Eosinophils # 0.5 10*3/uL (0.0-0.87); Eosinophils % 6.6 % (0.00-10.9); Immature Granulocytes % 0.9 %; Immature Granulocytes Absolute 0.07 #; Lymphocytes # 1.9 10*3/uL (1.4-4.0); Lymphocytes % 23.6 % (21.3-54.2); Mean Corpuscular HGB Conc 26.3 GM/DL (32-36); Mean Corpuscular Hemoglobin 20 PG (27-34); Mean Corpuscular Volume 77.6 FL (87-102); Mean Platelet Volume 9.3 FL (9.6-12.0); Monocytes # 0.7 10*3/uL (0.11-0.8); Monocytes % 8.9 % (1.7-12.7); Neutrophils # 4.7 10*3/uL (1.4-7.4); Neutrophils % 59.6 % (38.7-73.9); Platelet Count 381 T/CUMM (130-400); Red Blood Count 4.41 MC/CUMM (3.8-5.5); Red Cell Distribution Width 22.2 % (9.3-17.3); White Blood Count 7.8 T/CUMM (4-12)
[2017-09-29 05:16] LABS: Hematocrit 33.8 VOL% (35.7-47.0)
[2017-09-29 06:02] LABS: Calcium 8.8 MG/DL (8.5-10.1); Osmolality,Calculated 297.6 MOS/KG (273-304); Potassium 3.6 MMOL/L (3.5-5.1)
[2017-09-29] MEDS: POTASSIUM CHLORIDE 20 MEQ/15 ML UDCUP PER TUBE PRN (06:39)
[2017-09-29 07:27] LABS: Anisocytosis 1+; Microcytosis 2+; Platelet Estimate Normal
[2017-09-29] MEDS: ENOXAPARIN 40 MG/0.4 ML SYRINGE SUBCUT SCH (09:14)
[2017-09-29] MEDS: DOCUSATE SODIUM 100 MG/10 ML UDCUP NG SCH ×2 (09:16→21:17)
[2017-09-29] MEDS: CARVEDILOL 3.125 MG TABLET PO SCH ×2 (09:17→21:18)
[2017-09-29] MEDS: ASPIRIN CHEW 81 MG TABLET PO SCH (09:17)
[2017-09-29] MEDS: DILTIAZEM 30 MG TABLET PO SCH ×3 (09:18→21:17)
[2017-09-29] MEDS: PANTOPRAZOLE 40 MG VIAL IV SCH (09:19)
[2017-09-29] MEDS: DESITIN 4OZ/NYSTATIN 15 GRAM MIXTURE PASTE TOP SCH ×2 (09:23→21:18)
[2017-09-29] MEDS: MULTIVITAMIN LIQUID (CENTRUM) 60 ML BOTTLE PER TUBE SCH (09:23)
[2017-09-29] MEDS: AMINOPHYLLINE 1,000 MG in SODIUM CHLORIDE 0.9% 460 ML IV SCH (09:47)
[2017-09-29] MEDS: NOREPINEPHRINE 8 MG in SODIUM CHLORIDE 0.9% 242 ML IV SCH (20:46)
[2017-09-30] MEDS: PROPOFOL 1,000 MG/100 ML BOTTLE IV SCH ×4 (01:23→23:00)
[2017-09-30] MEDS: PIPERACILLIN/TAZOBACTAM 3,375 MG in SODIUM CHLORIDE 0.9% 100 ML IV SCH ×3 (03:22→18:33)
[2017-09-30 04:11] LABS: ABG Base Excess 3.3 MMOL/L (-2.5-2.5); ABG HCO3 27.3 MMOL/L (20-26); ABG Oxygen Saturation 96.5 % (95-100); ABG PCO2 51.3 MM HG (35-48); ABG PH 7.366 (7.35-7.45); ABG PO2 88.2 MM HG (80-95); ABG TCO2 27.1 MMOL/L (23-27); Allen Test Positive; Pt O2 Delivery Device Ventilator
[2017-09-30 05:04] LABS: Basophils % 0.4 % (0.0-0.8); Eosinophils # 0.5 10*3/uL (0.0-0.87); Eosinophils % 5.9 % (0.00-10.9); Hemoglobin 8.9 GM/DL (12.0-16.0); Immature Granulocytes % 0.8 %; Immature Granulocytes Absolute 0.06 #; Lymphocytes # 2.1 10*3/uL (1.4-4.0); Lymphocytes % 27.4 % (21.3-54.2); Mean Corpuscular HGB Conc 26.4 GM/DL (32-36); Mean Corpuscular Hemoglobin 21 PG (27-34); Mean Corpuscular Volume 77.8 FL (87-102); Mean Platelet Volume 9.6 FL (9.6-12.0); Monocytes # 0.9 10*3/uL (0.11-0.8); Monocytes % 11.3 % (1.7-12.7); Neutrophils # 4.2 10*3/uL (1.4-7.4); Neutrophils % 54.2 % (38.7-73.9); Platelet Count 398 T/CUMM (130-400); Red Blood Count 4.33 MC/CUMM (3.8-5.5); Red Cell Distribution Width 22.5 % (9.3-17.3); White Blood Count 7.8 T/CUMM (4-12)
[2017-09-30 05:06] LABS: Hematocrit 33.5 VOL% (35.7-47.0)
[2017-09-30 05:22] LABS: Calcium 9.2 MG/DL (8.5-10.1); Osmolality,Calculated 296.7 MOS/KG (273-304); Potassium 3.6 MMOL/L (3.5-5.1)
[2017-09-30] MEDS: INSULIN REGULAR 100 UNIT/ML SUBCUT SCH ×3 (06:10→18:28)
[2017-09-30] MEDS: methylPREDNISolone SOD SUC 40 MG/1 ML VIAL IV SCH ×2 (06:36→18:34)
[2017-09-30] MEDS: POTASSIUM CHLORIDE 20 MEQ/15 ML UDCUP PER TUBE PRN ×2 (07:18→09:10)
[2017-09-30] MEDS: ALBUTEROL/IPRATROPIUM 3 ML NEB RESP TX SCH ×3 (07:43→19:22)
[2017-09-30] MEDS: DOCUSATE SODIUM 100 MG/10 ML UDCUP NG SCH ×2 (09:08→21:26)
[2017-09-30] MEDS: DILTIAZEM 30 MG TABLET PO SCH ×3 (09:08→21:26)
[2017-09-30] MEDS: ASPIRIN CHEW 81 MG TABLET PO SCH (09:08)
[2017-09-30] MEDS: CARVEDILOL 3.125 MG TABLET PO SCH ×2 (09:08→21:26)
[2017-09-30] MEDS: PANTOPRAZOLE 40 MG VIAL IV SCH (09:09)
[2017-09-30] MEDS: ENOXAPARIN 40 MG/0.4 ML SYRINGE SUBCUT SCH (09:09)
[2017-09-30] MEDS: MULTIVITAMIN LIQUID (CENTRUM) 60 ML BOTTLE PER TUBE SCH (09:09)
[2017-09-30] MEDS: DESITIN 4OZ/NYSTATIN 15 GRAM MIXTURE PASTE TOP SCH ×2 (09:10→21:27)
[2017-09-30] MEDS: AMINOPHYLLINE 1,000 MG in SODIUM CHLORIDE 0.9% 460 ML IV SCH (09:55)
[2017-09-30] MEDS: NOREPINEPHRINE 8 MG in SODIUM CHLORIDE 0.9% 242 ML IV SCH (19:47)
[2017-10-01] MEDS: INSULIN REGULAR 100 UNIT/ML SUBCUT SCH ×4 (00:24→18:05)
[2017-10-01] MEDS: ALBUTEROL/IPRATROPIUM 3 ML NEB RESP TX SCH ×4 (01:06→19:40)
[2017-10-01] MEDS: PROPOFOL 1,000 MG/100 ML BOTTLE IV SCH ×3 (01:44→23:47)
[2017-10-01] MEDS: PIPERACILLIN/TAZOBACTAM 3,375 MG in SODIUM CHLORIDE 0.9% 100 ML IV SCH ×3 (03:12→18:44)
[2017-10-01 03:57] LABS: Allen Test Positive; Pt O2 Delivery Device Ventilator
[2017-10-01 03:58] LABS: ABG Base Excess 1.9 MMOL/L (-2.5-2.5); ABG HCO3 26.8 MMOL/L (20-26); ABG Oxygen Saturation 98.3 % (95-100); ABG PCO2 43.3 MM HG (35-48); ABG PO2 110.2 MM HG (80-95); ABG TCO2 28.2 MMOL/L (23-27)
[2017-10-01 04:33] LABS: Basophils % 0.2 % (0.0-0.8); Eosinophils % 0.2 % (0.00-10.9); Hemoglobin 9.3 GM/DL (12.0-16.0); Immature Granulocytes % 0.6 %; Immature Granulocytes Absolute 0.05 #; Lymphocytes % 22.6 % (21.3-54.2); Mean Corpuscular HGB Conc 27.4 GM/DL (32-36); Mean Corpuscular Hemoglobin 21 PG (27-34); Mean Corpuscular Volume 76.7 FL (87-102); Mean Platelet Volume 9.7 FL (9.6-12.0); Monocytes # 0.6 10*3/uL (0.11-0.8); Monocytes % 6.7 % (1.7-12.7); Neutrophils # 6.3 10*3/uL (1.4-7.4); Neutrophils % 69.7 % (38.7-73.9); Platelet Count 454 T/CUMM (130-400); Red Blood Count 4.42 MC/CUMM (3.8-5.5); Red Cell Distribution Width 22.1 % (9.3-17.3)
[2017-10-01 04:35] LABS: Hematocrit 33.9 VOL% (35.7-47.0)
[2017-10-01 04:51] LABS: Calcium 9.5 MG/DL (8.5-10.1); Potassium 4.2 MMOL/L (3.5-5.1)
[2017-10-01 06:27] LABS: Magnesium 2.1 MG/DL (1.8-2.4); Phosphorous 4.1 MG/DL (2.5-4.9); Prealbumin 18.2 MG/DL (20-40)
[2017-10-01] MEDS: methylPREDNISolone SOD SUC 40 MG/1 ML VIAL IV SCH ×2 (06:44→18:50)
[2017-10-01] MEDS: DOCUSATE SODIUM 100 MG/10 ML UDCUP NG SCH ×2 (09:48→20:54)
[2017-10-01] MEDS: CARVEDILOL 3.125 MG TABLET PO SCH ×2 (09:48→20:55)
[2017-10-01] MEDS: DILTIAZEM 30 MG TABLET PO SCH ×3 (09:49→20:55)
[2017-10-01] MEDS: ENOXAPARIN 40 MG/0.4 ML SYRINGE SUBCUT SCH (09:50)
[2017-10-01] MEDS: ASPIRIN CHEW 81 MG TABLET PO SCH (09:50)
[2017-10-01] MEDS: MULTIVITAMIN LIQUID (CENTRUM) 60 ML BOTTLE PER TUBE SCH (09:51)
[2017-10-01] MEDS: PANTOPRAZOLE 40 MG VIAL IV SCH (09:52)
[2017-10-01 10:01] LABS: ABG HCO3 29.5 MMOL/L (20-26); ABG Oxygen Saturation 92.5 % (95-100); ABG PH 7.247 (7.35-7.45); ABG PO2 75.2 MM HG (80-95); ABG TCO2 31.6 MMOL/L (23-27)
[2017-10-01 10:05] LABS: ABG PCO2 69.3 MM HG (35-48)
[2017-10-01] MEDS: AMINOPHYLLINE 1,000 MG in SODIUM CHLORIDE 0.9% 460 ML IV SCH (11:31)
[2017-10-01] MEDS: DESITIN 4OZ/NYSTATIN 15 GRAM MIXTURE PASTE TOP SCH ×2 (12:23→21:01)
[2017-10-01 16:26] LABS: ABG Base Excess 2.7 MMOL/L (-2.5-2.5); ABG HCO3 31.7 MMOL/L (20-26); ABG Oxygen Saturation 90.6 % (95-100); ABG PH 7.235 (7.35-7.45); ABG PO2 66.5 MM HG (80-95); ABG TCO2 34.1 MMOL/L (23-27)
[2017-10-01 16:28] LABS: ABG PCO2 76.6 MM HG (35-48)
[2017-10-01] MEDS: NOREPINEPHRINE 8 MG in SODIUM CHLORIDE 0.9% 242 ML IV SCH (20:44)
[2017-10-02] MEDS: ALBUTEROL/IPRATROPIUM 3 ML NEB RESP TX SCH ×4 (01:02→19:20)
[2017-10-02] MEDS: INSULIN REGULAR 100 UNIT/ML SUBCUT SCH ×4 (01:39→17:55)
[2017-10-02] MEDS: PROPOFOL 1,000 MG/100 ML BOTTLE IV SCH ×3 (02:01→17:48)
[2017-10-02] MEDS: PIPERACILLIN/TAZOBACTAM 3,375 MG in SODIUM CHLORIDE 0.9% 100 ML IV SCH ×3 (03:18→17:58)
[2017-10-02 04:04] LABS: ABG Base Excess 2.2 MMOL/L (-2.5-2.5); ABG HCO3 26.4 MMOL/L (20-26); ABG Oxygen Saturation 98.7 % (95-100); ABG PCO2 43.6 MM HG (35-48); ABG PH 7.404 (7.35-7.45); ABG TCO2 24.9 MMOL/L (23-27); Allen Test Positive; Pt O2 Delivery Device Ventilator
[2017-10-02] MEDS: methylPREDNISolone SOD SUC 40 MG/1 ML VIAL IV SCH ×2 (06:00→18:08)
[2017-10-02] MEDS: hydrALAZINE 20 MG/1 ML VIAL IV PRN ×2 (08:13→15:41)
[2017-10-02] MEDS: CARVEDILOL 3.125 MG TABLET PO SCH ×2 (09:17→21:57)
[2017-10-02] MEDS: DILTIAZEM 30 MG TABLET PO SCH ×3 (09:17→21:56)
[2017-10-02] MEDS: FUROSEMIDE 40 MG/4 ML VIAL IV SCH (09:18)
[2017-10-02] MEDS: PANTOPRAZOLE 40 MG VIAL IV SCH (09:20)
[2017-10-02] MEDS: AMINOPHYLLINE 1,000 MG in SODIUM CHLORIDE 0.9% 460 ML IV SCH (10:50)
[2017-10-02] MEDS ORDERED: MICROFIBRILLAR COLLAGEN POWDER 1 GM CAN TOP ONE (13:25)
[2017-10-02] MEDS ORDERED: THROMBIN TOPICAL (RECOMBINANT) 5,000 UNIT VIAL TOP ONE (13:25)
[2017-10-02] MEDS ORDERED: LIDOCAINE 1%/EPI INJ 20 ML VIAL ONE (13:25)
[2017-10-02] MEDS ORDERED: fentaNYL 100 MCG/2 ML VIAL ONE (15:10)
[2017-10-02] MEDS ORDERED: PROPOFOL 200 MG/20 ML VIAL IV ONE (15:10)
[2017-10-02] MEDS: ASPIRIN CHEW 81 MG TABLET PO SCH (16:06)
[2017-10-02] MEDS: DOCUSATE SODIUM 100 MG/10 ML UDCUP NG SCH ×2 (16:06→21:56)
[2017-10-02] MEDS: ENOXAPARIN 40 MG/0.4 ML SYRINGE SUBCUT SCH (16:07)
[2017-10-02] MEDS: MULTIVITAMIN LIQUID (CENTRUM) 60 ML BOTTLE PER TUBE SCH (16:07)
[2017-10-02] MEDS: DESITIN 4OZ/NYSTATIN 15 GRAM MIXTURE PASTE TOP SCH ×2 (16:08→21:57)
[2017-10-02] MEDS: MORPHINE 2 MG/1 ML SYRINGE IV PRN (16:38)
[2017-10-03] MEDS: ALBUTEROL/IPRATROPIUM 3 ML NEB RESP TX SCH ×5 (00:56→19:31)
[2017-10-03] MEDS: NOREPINEPHRINE 8 MG in SODIUM CHLORIDE 0.9% 242 ML IV SCH (02:21)
[2017-10-03] MEDS: INSULIN REGULAR 100 UNIT/ML SUBCUT SCH ×4 (02:30→18:50)
[2017-10-03] MEDS: PIPERACILLIN/TAZOBACTAM 3,375 MG in SODIUM CHLORIDE 0.9% 100 ML IV SCH ×3 (02:43→17:27)
[2017-10-03 03:56] LABS: ABG Base Excess 2.6 MMOL/L (-2.5-2.5); ABG HCO3 26.7 MMOL/L (20-26); ABG Oxygen Saturation 96.3 % (95-100); ABG PCO2 39.9 MM HG (35-48); ABG PH 7.437 (7.35-7.45); ABG PO2 81.7 MM HG (80-95); ABG TCO2 24.5 MMOL/L (23-27); Allen Test Positive; Pt O2 Delivery Device Ventilator
[2017-10-03 05:43] LABS: Calcium 9.8 MG/DL (8.5-10.1); Magnesium 2.2 MG/DL (1.8-2.4); Osmolality,Calculated 298.1 MOS/KG (273-304); Potassium 3.5 MMOL/L (3.5-5.1)
[2017-10-03] MEDS ORDERED: LIDOCAINE 1% 20 ML VIAL MISC INJ ONE (05:47)
[2017-10-03] MEDS ORDERED: LIDOCAINE 2% 20 ML VIAL RESP TX ONE (05:47)
[2017-10-03 05:57] LABS: Basophils % 0.2 % (0.0-0.8); Eosinophils # 0.1 10*3/uL (0.0-0.87); Eosinophils % 0.4 % (0.00-10.9); Hemoglobin 9.7 GM/DL (12.0-16.0); Immature Granulocytes % 0.7 %; Immature Granulocytes Absolute 0.08 #; Lymphocytes # 2.9 10*3/uL (1.4-4.0); Lymphocytes % 23.7 % (21.3-54.2); Mean Corpuscular HGB Conc 27.9 GM/DL (32-36); Mean Corpuscular Hemoglobin 21 PG (27-34); Mean Platelet Volume 9.8 FL (9.6-12.0); Monocytes # 1.2 10*3/uL (0.11-0.8); Monocytes % 9.5 % (1.7-12.7); NRBC # 0.04 10*3/uL; Neutrophils # 7.9 10*3/uL (1.4-7.4); Neutrophils % 65.5 % (38.7-73.9); Platelet Count 547 T/CUMM (130-400); Red Blood Count 4.64 MC/CUMM (3.8-5.5); Red Cell Distribution Width 22.8 % (9.3-17.3); White Blood Count 12.1 T/CUMM (4-12)
[2017-10-03 05:59] LABS: Hematocrit 34.6 VOL% (35.7-47.0)
[2017-10-03 06:14] LABS: Giant Platelets Few; Hypochromasia 1+; Lymphocytes 18 % (20-55); Ovalocytes Slight; Platelet Estimate Increased; Segmented Neutrophils 74 % (50-85); Total Cells Counted 100
[2017-10-03] MEDS: methylPREDNISolone SOD SUC 40 MG/1 ML VIAL IV SCH ×2 (07:22→17:35)
[2017-10-03] MEDS: PROPOFOL 1,000 MG/100 ML BOTTLE IV SCH (07:28)
[2017-10-03] MEDS: DILTIAZEM 30 MG TABLET PO SCH ×3 (09:04→20:36)
[2017-10-03] MEDS: POTASSIUM CHLORIDE 20 MEQ/15 ML UDCUP PER TUBE PRN (09:05)
[2017-10-03] MEDS: PANTOPRAZOLE 40 MG VIAL IV SCH (09:05)
[2017-10-03] MEDS: CARVEDILOL 3.125 MG TABLET PO SCH ×2 (09:05→20:36)
[2017-10-03] MEDS: MULTIVITAMIN LIQUID (CENTRUM) 60 ML BOTTLE PER TUBE SCH (09:10)
[2017-10-03] MEDS: DESITIN 4OZ/NYSTATIN 15 GRAM MIXTURE PASTE TOP SCH (09:11)
[2017-10-03] MEDS: FUROSEMIDE 40 MG/4 ML VIAL IV SCH (09:13)
[2017-10-03] MEDS: AMINOPHYLLINE 1,000 MG in SODIUM CHLORIDE 0.9% 460 ML IV SCH (11:54)
[2017-10-03] MEDS: ASPIRIN CHEW 81 MG TABLET PO SCH (11:56)
[2017-10-03] MEDS: DOCUSATE SODIUM 100 MG/10 ML UDCUP NG SCH ×2 (11:56→20:35)
[2017-10-03] MEDS: MIDAZOLAM 2 MG/2 ML VIAL IV PRN (13:03)
[2017-10-03] MEDS: ENOXAPARIN 40 MG/0.4 ML SYRINGE SUBCUT SCH (14:24)
[2017-10-04] MEDS: NOREPINEPHRINE 8 MG in SODIUM CHLORIDE 0.9% 242 ML IV SCH ×2 (00:14→20:38)
[2017-10-04] MEDS: PROPOFOL 1,000 MG/100 ML BOTTLE IV SCH ×2 (00:14→19:25)
[2017-10-04] MEDS: ALBUTEROL/IPRATROPIUM 3 ML NEB RESP TX SCH ×4 (01:04→19:51)
[2017-10-04] MEDS: INSULIN REGULAR 100 UNIT/ML SUBCUT SCH ×4 (02:43→17:58)
[2017-10-04] MEDS: DESITIN 4OZ/NYSTATIN 15 GRAM MIXTURE PASTE TOP SCH ×3 (02:44→20:37)
[2017-10-04 04:20] LABS: Basophils % 0.3 % (0.0-0.8); Eosinophils % 0.4 % (0.00-10.9); Hematocrit 35.6 VOL% (35.7-47.0); Hemoglobin 9.8 GM/DL (12.0-16.0); Immature Granulocytes % 0.6 %; Immature Granulocytes Absolute 0.07 #; Lymphocytes # 2.4 10*3/uL (1.4-4.0); Mean Corpuscular HGB Conc 27.5 GM/DL (32-36); Mean Corpuscular Hemoglobin 21 PG (27-34); Mean Corpuscular Volume 75.9 FL (87-102); Mean Platelet Volume 9.6 FL (9.6-12.0); Monocytes # 1.1 10*3/uL (0.11-0.8); Monocytes % 10.1 % (1.7-12.7); Neutrophils # 7.7 10*3/uL (1.4-7.4); Neutrophils % 67.6 % (38.7-73.9); Platelet Count 575 T/CUMM (130-400); Red Blood Count 4.69 MC/CUMM (3.8-5.5); Red Cell Distribution Width 22.7 % (9.3-17.3); White Blood Count 11.3 T/CUMM (4-12)
[2017-10-04 04:37] LABS: ABG Base Excess 4.2 MMOL/L (-2.5-2.5); ABG HCO3 28.2 MMOL/L (20-26); ABG Oxygen Saturation 96.7 % (95-100); ABG PCO2 47.1 MM HG (35-48); ABG PH 7.406 (7.35-7.45); ABG PO2 86.3 MM HG (80-95); ABG TCO2 26.9 MMOL/L (23-27); Allen Test Positive; Pt O2 Delivery Device Ventilator
[2017-10-04 04:55] LABS: Calcium 9.7 MG/DL (8.5-10.1); Osmolality,Calculated 301.8 MOS/KG (273-304); Potassium 3.7 MMOL/L (3.5-5.1)
[2017-10-04 05:22] LABS: Magnesium 2.3 MG/DL (1.8-2.4); Phosphorous 3.8 MG/DL (2.5-4.9); Prealbumin 31.1 MG/DL (20-40)
[2017-10-04 06:12] LABS: Hypochromasia Slight; Platelet Estimate Increased
[2017-10-04] MEDS: methylPREDNISolone SOD SUC 40 MG/1 ML VIAL IV SCH ×2 (06:12→18:32)
[2017-10-04 06:13] LABS: Polychromasia Slight
[2017-10-04] MEDS: DILTIAZEM 30 MG TABLET PO SCH ×3 (09:36→20:37)
[2017-10-04] MEDS: CARVEDILOL 3.125 MG TABLET PO SCH ×2 (09:36→20:37)
[2017-10-04] MEDS: PANTOPRAZOLE 40 MG VIAL IV SCH (09:37)
[2017-10-04] MEDS: ASPIRIN CHEW 81 MG TABLET PO SCH (09:39)
[2017-10-04] MEDS: DOCUSATE SODIUM 100 MG/10 ML UDCUP NG SCH ×2 (09:39→20:36)
[2017-10-04] MEDS: ENOXAPARIN 40 MG/0.4 ML SYRINGE SUBCUT SCH (09:39)
[2017-10-04] MEDS: MULTIVITAMIN LIQUID (CENTRUM) 60 ML BOTTLE PER TUBE SCH (09:39)
[2017-10-04] MEDS: POTASSIUM CHLORIDE 20 MEQ/15 ML UDCUP PER TUBE PRN (09:39)
[2017-10-04] MEDS: FUROSEMIDE 40 MG/4 ML VIAL IV SCH (09:39)
[2017-10-04] MEDS: ZINC OXIDE PASTE 113 GM TUBE TOP SCH ×2 (12:35→20:37)
[2017-10-04] MEDS: AMINOPHYLLINE 1,000 MG in SODIUM CHLORIDE 0.9% 460 ML IV SCH (12:41)
[2017-10-05] MEDS: INSULIN REGULAR 100 UNIT/ML SUBCUT SCH ×4 (00:16→18:00)
[2017-10-05] MEDS: ALBUTEROL/IPRATROPIUM 3 ML NEB RESP TX SCH ×4 (01:33→19:22)
[2017-10-05 04:25] LABS: Calcium 9.9 MG/DL (8.5-10.1); Magnesium 2.1 MG/DL (1.8-2.4); Osmolality,Calculated 292.4 MOS/KG (273-304); Potassium 3.6 MMOL/L (3.5-5.1)
[2017-10-05 04:42] LABS: Allen Test Positive; Pt O2 Delivery Device Ventilator
[2017-10-05 04:43] LABS: ABG Base Excess 5.2 MMOL/L (-2.5-2.5); ABG HCO3 30.2 MMOL/L (20-26); ABG Oxygen Saturation 98.3 % (95-100); ABG PCO2 46.5 MM HG (35-48); ABG PH 7.431 (7.35-7.45); ABG PO2 108.2 MM HG (80-95); ABG TCO2 31.7 MMOL/L (23-27)
[2017-10-05] MEDS: methylPREDNISolone SOD SUC 40 MG/1 ML VIAL IV SCH ×2 (06:17→18:00)
[2017-10-05] MEDS: DESITIN 4OZ/NYSTATIN 15 GRAM MIXTURE PASTE TOP SCH ×2 (09:00→22:09)
[2017-10-05] MEDS: ASPIRIN CHEW 81 MG TABLET PO SCH (09:00)
[2017-10-05] MEDS: ZINC OXIDE PASTE 113 GM TUBE TOP SCH ×2 (09:00→22:09)
[2017-10-05] MEDS: MULTIVITAMIN LIQUID (CENTRUM) 60 ML BOTTLE PER TUBE SCH (09:00)
[2017-10-05] MEDS: DILTIAZEM 30 MG TABLET PO SCH ×3 (09:00→22:08)
[2017-10-05] MEDS: PANTOPRAZOLE 40 MG VIAL IV SCH (09:00)
[2017-10-05] MEDS: FUROSEMIDE 40 MG/4 ML VIAL IV SCH (09:00)
[2017-10-05] MEDS: DOCUSATE SODIUM 100 MG/10 ML UDCUP NG SCH ×2 (09:00→22:09)
[2017-10-05] MEDS: ENOXAPARIN 40 MG/0.4 ML SYRINGE SUBCUT SCH (09:00)
[2017-10-05] MEDS: CARVEDILOL 3.125 MG TABLET PO SCH ×2 (09:00→22:08)
[2017-10-05] MEDS: AMINOPHYLLINE 1,000 MG in SODIUM CHLORIDE 0.9% 460 ML IV SCH (17:00)
[2017-10-05] MEDS: PROPOFOL 1,000 MG/100 ML BOTTLE IV SCH (19:04)
[2017-10-05] MEDS: NOREPINEPHRINE 8 MG in SODIUM CHLORIDE 0.9% 242 ML IV SCH (22:08)
[2017-10-06] MEDS: ALBUTEROL/IPRATROPIUM 3 ML NEB RESP TX SCH ×4 (00:20→18:03)
[2017-10-06] MEDS: INSULIN REGULAR 100 UNIT/ML SUBCUT SCH ×3 (00:59→12:00)
[2017-10-06] MEDS: methylPREDNISolone SOD SUC 40 MG/1 ML VIAL IV SCH ×2 (06:20→18:30)
[2017-10-06] MEDS ORDERED: DOCUSATE SODIUM 100 MG CAPSULE PO PRN (07:48)
[2017-10-06] MEDS: ASPIRIN CHEW 81 MG TABLET PO SCH (08:50)
[2017-10-06] MEDS: MULTIVITAMIN LIQUID (CENTRUM) 60 ML BOTTLE PER TUBE SCH (08:50)
[2017-10-06] MEDS: CARVEDILOL 3.125 MG TABLET PO SCH ×2 (08:50→20:50)
[2017-10-06] MEDS: FUROSEMIDE 40 MG/4 ML VIAL IV SCH (08:50)
[2017-10-06] MEDS: THEOPHYLLINE ER (24 HR) 400 MG CAPSULE PO SCH (08:50)
[2017-10-06] MEDS: DILTIAZEM 30 MG TABLET PO SCH ×3 (08:50→20:50)
[2017-10-06] MEDS: PANTOPRAZOLE 40 MG TABLET PO SCH (08:50)
[2017-10-06] MEDS: ENOXAPARIN 40 MG/0.4 ML SYRINGE SUBCUT SCH (10:00)
[2017-10-06] MEDS: DESITIN 4OZ/NYSTATIN 15 GRAM MIXTURE PASTE TOP SCH ×2 (10:45→20:51)
[2017-10-06] MEDS: ZINC OXIDE PASTE 113 GM TUBE TOP SCH ×2 (10:45→20:50)
[2017-10-06] MEDS: NOREPINEPHRINE 8 MG in SODIUM CHLORIDE 0.9% 242 ML IV SCH (20:04)
[2017-10-07] MEDS: ALBUTEROL/IPRATROPIUM 3 ML NEB RESP TX SCH ×4 (01:54→19:54)
[2017-10-07 04:29] LABS: Basophils % 0.2 % (0.0-0.8); Hematocrit 34.8 VOL% (35.7-47.0); Hemoglobin 9.7 GM/DL (12.0-16.0); Immature Granulocytes % 0.4 %; Immature Granulocytes Absolute 0.05 #; Lymphocytes # 2.5 10*3/uL (1.4-4.0); Lymphocytes % 21.7 % (21.3-54.2); Mean Corpuscular HGB Conc 27.9 GM/DL (32-36); Mean Corpuscular Hemoglobin 21 PG (27-34); Mean Corpuscular Volume 74.5 FL (87-102); Mean Platelet Volume 9.8 FL (9.6-12.0); Monocytes # 0.7 10*3/uL (0.11-0.8); Neutrophils # 8.1 10*3/uL (1.4-7.4); Neutrophils % 71.7 % (38.7-73.9); Platelet Count 563 T/CUMM (130-400); Red Blood Count 4.67 MC/CUMM (3.8-5.5); Red Cell Distribution Width 22.7 % (9.3-17.3); White Blood Count 11.4 T/CUMM (4-12)
[2017-10-07 04:54] LABS: Osmolality,Calculated 272.4 MOS/KG (273-304); Potassium 3.8 MMOL/L (3.5-5.1)
[2017-10-07 05:16] LABS: Hypochromasia 2+; Platelet Estimate Increased
[2017-10-07 05:17] LABS: Anisocytosis 1+; Microcytosis 1+
[2017-10-07] MEDS: methylPREDNISolone SOD SUC 40 MG/1 ML VIAL IV SCH ×2 (06:05→18:49)
[2017-10-07] MEDS: DILTIAZEM 30 MG TABLET PO SCH ×3 (09:26→21:20)
[2017-10-07] MEDS: PANTOPRAZOLE 40 MG TABLET PO SCH (09:26)
[2017-10-07] MEDS: ASPIRIN CHEW 81 MG TABLET PO SCH (09:26)
[2017-10-07] MEDS: FUROSEMIDE 40 MG/4 ML VIAL IV SCH (09:26)
[2017-10-07] MEDS: THEOPHYLLINE ER (24 HR) 400 MG CAPSULE PO SCH (09:26)
[2017-10-07] MEDS: CARVEDILOL 3.125 MG TABLET PO SCH ×2 (09:26→21:21)
[2017-10-07] MEDS: ENOXAPARIN 40 MG/0.4 ML SYRINGE SUBCUT SCH (09:29)
[2017-10-07] MEDS: hydrALAZINE 20 MG/1 ML VIAL IV PRN (09:30)
[2017-10-07] MEDS: MULTIVITAMIN LIQUID (CENTRUM) 60 ML BOTTLE PER TUBE SCH (10:56)
[2017-10-07] MEDS: ZINC OXIDE PASTE 113 GM TUBE TOP SCH (10:57)
[2017-10-07] MEDS: DESITIN 4OZ/NYSTATIN 15 GRAM MIXTURE PASTE TOP SCH (10:57)
[2017-10-07] MEDS: NOREPINEPHRINE 8 MG in SODIUM CHLORIDE 0.9% 242 ML IV SCH (20:16)
[2017-10-08] MEDS: ALBUTEROL/IPRATROPIUM 3 ML NEB RESP TX SCH ×4 (02:19→19:33)
[2017-10-08 03:49] LABS: ABG PCO2 42.8 MM HG (35-48); ABG PO2 98.5 MM HG (80-95)
[2017-10-08 03:53] LABS: ABG Base Excess 6.8 MMOL/L (-2.5-2.5); ABG HCO3 30.7 MMOL/L (20-26); ABG PH 7.471 (7.35-7.45)
[2017-10-08 04:27] LABS: Calcium 10.1 MG/DL (8.5-10.1); Magnesium 1.7 MG/DL (1.8-2.4); Osmolality,Calculated 270.7 MOS/KG (273-304); Potassium 3.8 MMOL/L (3.5-5.1)
[2017-10-08 04:35] LABS: Basophils % 0.2 % (0.0-0.8); Eosinophils % 0.1 % (0.00-10.9); Hemoglobin 10.3 GM/DL (12.0-16.0); Immature Granulocytes % 0.6 %; Immature Granulocytes Absolute 0.08 #; Lymphocytes # 2.4 10*3/uL (1.4-4.0); Lymphocytes % 18.9 % (21.3-54.2); Mean Corpuscular HGB Conc 28.6 GM/DL (32-36); Mean Corpuscular Hemoglobin 21 PG (27-34); Mean Corpuscular Volume 74.1 FL (87-102); Mean Platelet Volume 9.9 FL (9.6-12.0); Monocytes # 0.9 10*3/uL (0.11-0.8); Monocytes % 6.7 % (1.7-12.7); Neutrophils # 9.5 10*3/uL (1.4-7.4); Neutrophils % 73.5 % (38.7-73.9); Platelet Count 538 T/CUMM (130-400); Red Blood Count 4.86 MC/CUMM (3.8-5.5); Red Cell Distribution Width 22.4 % (9.3-17.3); White Blood Count 12.9 T/CUMM (4-12)
[2017-10-08 04:49] LABS: Prealbumin 31.1 MG/DL (20-40)
[2017-10-08 05:08] LABS: Platelet Estimate Increased
[2017-10-08 05:09] LABS: Hypochromasia 1+; Ovalocytes 1+
[2017-10-08] MEDS: DESITIN 4OZ/NYSTATIN 15 GRAM MIXTURE PASTE TOP SCH ×3 (05:53→22:06)
[2017-10-08] MEDS: methylPREDNISolone SOD SUC 40 MG/1 ML VIAL IV SCH (05:53)
[2017-10-08] MEDS: ZINC OXIDE PASTE 113 GM TUBE TOP SCH ×3 (05:54→22:05)
[2017-10-08] MEDS: ENOXAPARIN 40 MG/0.4 ML SYRINGE SUBCUT SCH (09:18)
[2017-10-08] MEDS: FUROSEMIDE 40 MG/4 ML VIAL IV SCH (09:18)
[2017-10-08] MEDS: DILTIAZEM 30 MG TABLET PO SCH ×3 (09:18→22:04)
[2017-10-08] MEDS: THEOPHYLLINE ER (24 HR) 400 MG CAPSULE PO SCH (09:19)
[2017-10-08] MEDS: ASPIRIN CHEW 81 MG TABLET PO SCH (09:19)
[2017-10-08] MEDS: PANTOPRAZOLE 40 MG TABLET PO SCH (09:19)
[2017-10-08] MEDS: MULTIVITAMIN (CENTRUM) TABLET PO SCH (09:19)
[2017-10-08] MEDS: CARVEDILOL 3.125 MG TABLET PO SCH ×2 (09:19→22:05)
[2017-10-08] MEDS: hydrALAZINE 20 MG/1 ML VIAL IV PRN (13:05)
[2017-10-09] MEDS: ALBUTEROL/IPRATROPIUM 3 ML NEB RESP TX SCH ×4 (01:11→18:55)
[2017-10-09 02:32] LABS: ABG Base Excess 6.5 MMOL/L (-2.5-2.5); ABG HCO3 30.3 MMOL/L (20-26); ABG Oxygen Saturation 97.6 % (95-100); ABG PCO2 54.1 MM HG (35-48); ABG PH 7.391 (7.35-7.45); ABG TCO2 29.7 MMOL/L (23-27); Allen Test Positive
[2017-10-09] MEDS ORDERED: methylPREDNISolone SOD SUC 40 MG/1 ML VIAL IV SCH (06:00)
[2017-10-09 06:09] LABS: Calcium 10.5 MG/DL (8.5-10.1); Osmolality,Calculated 275.2 MOS/KG (273-304); Potassium 3.8 MMOL/L (3.5-5.1)
[2017-10-09] MEDS: MORPHINE 2 MG/1 ML SYRINGE IV PRN (06:09)
[2017-10-09] MEDS: ASPIRIN CHEW 81 MG TABLET PO SCH (08:38)
[2017-10-09] MEDS: CARVEDILOL 3.125 MG TABLET PO SCH ×2 (08:38→20:12)
[2017-10-09] MEDS: DILTIAZEM 30 MG TABLET PO SCH ×3 (08:38→20:12)
[2017-10-09] MEDS: THEOPHYLLINE ER (24 HR) 400 MG CAPSULE PO SCH (08:38)
[2017-10-09] MEDS: MULTIVITAMIN (CENTRUM) TABLET PO SCH (08:38)
[2017-10-09] MEDS: FUROSEMIDE 40 MG/4 ML VIAL IV SCH (08:40)
[2017-10-09] MEDS: ENOXAPARIN 40 MG/0.4 ML SYRINGE SUBCUT SCH (08:41)
[2017-10-09] MEDS: PANTOPRAZOLE 40 MG TABLET PO SCH (08:43)
[2017-10-09] MEDS: ZINC OXIDE PASTE 113 GM TUBE TOP SCH ×2 (08:49→20:13)
[2017-10-09] MEDS: DESITIN 4OZ/NYSTATIN 15 GRAM MIXTURE PASTE TOP SCH ×2 (08:49→20:13)
[2017-10-10] MEDS: ALBUTEROL/IPRATROPIUM 3 ML NEB RESP TX SCH ×4 (00:40→20:43)
[2017-10-10 04:53] LABS: ABG Base Excess 5.3 MMOL/L (-2.5-2.5); ABG HCO3 29.2 MMOL/L (20-26); ABG Oxygen Saturation 98.4 % (95-100); ABG PCO2 65.7 MM HG (35-48); ABG PH 7.314 (7.35-7.45); ABG TCO2 30.6 MMOL/L (23-27); Allen Test Positive
[2017-10-10] MEDS: MULTIVITAMIN (CENTRUM) TABLET PO SCH (10:35)
[2017-10-10] MEDS: FUROSEMIDE 40 MG/4 ML VIAL IV SCH (10:35)
[2017-10-10] MEDS: CARVEDILOL 3.125 MG TABLET PO SCH ×2 (10:35→21:15)
[2017-10-10] MEDS: THEOPHYLLINE ER (24 HR) 400 MG CAPSULE PO SCH (10:35)
[2017-10-10] MEDS: DILTIAZEM 30 MG TABLET PO SCH ×3 (10:35→21:15)
[2017-10-10] MEDS: PANTOPRAZOLE 40 MG TABLET PO SCH (10:36)
[2017-10-10] MEDS: ASPIRIN CHEW 81 MG TABLET PO SCH (10:36)
[2017-10-10] MEDS: ENOXAPARIN 40 MG/0.4 ML SYRINGE SUBCUT SCH (10:36)
[2017-10-10] MEDS: ZINC OXIDE PASTE 113 GM TUBE TOP SCH ×2 (10:43→21:21)
[2017-10-10] MEDS: DESITIN 4OZ/NYSTATIN 15 GRAM MIXTURE PASTE TOP SCH ×2 (10:43→21:20)
[2017-10-11] MEDS: ALBUTEROL/IPRATROPIUM 3 ML NEB RESP TX SCH ×3 (00:45→14:05)
[2017-10-11 03:21] LABS: ABG Base Excess 9.1 MMOL/L (-2.5-2.5); ABG HCO3 37.5 MMOL/L (20-26); ABG Oxygen Saturation 96.3 % (95-100); ABG PH 7.321 (7.35-7.45); ABG PO2 87.8 MM HG (80-95); ABG TCO2 39.7 MMOL/L (23-27); Allen Test Positive; Pt O2 Delivery Device Other
[2017-10-11 03:25] LABS: ABG PCO2 74.2 MM HG (35-48)
[2017-10-11 06:57] LABS: Basophils % 0.4 % (0.0-0.8); Eosinophils # 0.2 10*3/uL (0.0-0.87); Eosinophils % 1.4 % (0.00-10.9); Hematocrit 37.5 VOL% (35.7-47.0); Hemoglobin 10.2 GM/DL (12.0-16.0); Immature Granulocytes % 0.5 %; Immature Granulocytes Absolute 0.05 #; Lymphocytes % 18.4 % (21.3-54.2); Mean Corpuscular HGB Conc 27.2 GM/DL (32-36); Mean Corpuscular Hemoglobin 21 PG (27-34); Mean Corpuscular Volume 78.5 FL (87-102); Mean Platelet Volume 10.2 FL (9.6-12.0); Monocytes # 1.1 10*3/uL (0.11-0.8); Neutrophils # 7.5 10*3/uL (1.4-7.4); Neutrophils % 69.3 % (38.7-73.9); Platelet Count 382 T/CUMM (130-400); Red Blood Count 4.78 MC/CUMM (3.8-5.5); Red Cell Distribution Width 22.3 % (9.3-17.3); White Blood Count 10.9 T/CUMM (4-12)
[2017-10-11 07:24] LABS: Hypochromasia 1+
[2017-10-11 07:28] LABS: Osmolality,Calculated 274.2 MOS/KG (273-304); Potassium 3.7 MMOL/L (3.5-5.1)
[2017-10-11] MEDS ORDERED: FUROSEMIDE 40 MG/4 ML VIAL IV SCH (08:00)
[2017-10-11] MEDS: MULTIVITAMIN (CENTRUM) TABLET PO SCH (09:37)
[2017-10-11] MEDS: ASPIRIN CHEW 81 MG TABLET PO SCH (09:37)
[2017-10-11] MEDS: THEOPHYLLINE ER (24 HR) 400 MG CAPSULE PO SCH (09:37)
[2017-10-11] MEDS: DILTIAZEM 30 MG TABLET PO SCH (09:37)
[2017-10-11] MEDS: CARVEDILOL 3.125 MG TABLET PO SCH (09:38)
[2017-10-11] MEDS: ZINC OXIDE PASTE 113 GM TUBE TOP SCH (09:38)
[2017-10-11] MEDS: PANTOPRAZOLE 40 MG TABLET PO SCH (09:38)
[2017-10-11] MEDS: ENOXAPARIN 40 MG/0.4 ML SYRINGE SUBCUT SCH (09:38)
[2017-10-11] MEDS: DESITIN 4OZ/NYSTATIN 15 GRAM MIXTURE PASTE TOP SCH (09:38)
[2017-10-11 12:48] VITALS: BP 119/68
== END 2017-10-11 14:30 | DRG 4 ==
LOC: N.ED 15:15 → N.EDINP 19:59 → SUATTDRO 19:59 → N.TELEN 20:55 → N.CVR 09-19 07:34 → N.ICU 09-19 16:34 → N.2E 10-09 16:31
PROVIDERS: ADMIT Internal Medicine; ATTEND Internal Medicine